=== PATIENT | female | born 2000 | race Caucasian/White ===

== ENCOUNTER 2020-08-27 16:12 | Emergency (ER) | payer OTHER ==
[~2020-08-27] VITALS: Ht 162.6 cm; Wt 70.2 kg
[2020-08-27] MEDS ORDERED: ONDANSETRON ODT 4 MG TAB.RAPDIS PO ONE (16:45)
[2020-08-27 17:44] LABS: BILIRUBIN,URINE NEG (NEG); CLARITY,URINE CLEAR; COLOR,URINE YELLOW; GLUCOSE,URINE NEG (NEG); NITRITE,URINE NEG (NEG); RBC,URINE OCC /HPF (0-2); UROBILINOGEN,URINE 0.2 mg/dL (0.2 mg/dL)
[2020-08-27 17:45] LABS: BACTERIA,URINE FEW /HPF (0-FEW); SQUAMOUS EPITHELIAL CELL,UR FEW /LPF
[2020-08-27 18:00] VITALS: BP 125/81
--- NOTE | 2020-08-27 18:10 | PHYS DOC ---
Past History Past Medical History: Endometriosis (SHASTA LOGAN APRN) Past Surgical History: No Surgical History (SHASTA LOGAN APRN) Alcohol Use: Rarely (SHASTA LOGAN APRN) Adult General Chief Complaint Chief Complaint: NAUSEA/VOMITING/DIARRHEA HPI HPI Patient is a 20-year-old female presents emergency department complaining that she vomited 3 times after eating today. Patient states she also had 1 bout of diarrhea with loose brown stool but did not see any blood in her stool. Patient denies any blood in her vomitus. Patient's states that she received the Moderna Covid19 vaccination shot yesterday and thinks maybe she is having a reaction to that. Patient currently denies any nausea, abdominal pain, chest pain, shortness of breath, congestion. Patient states that her last menstrual cycle was 2 weeks ago and she could not be because she has not had sex since then. Patient denies any vaginal discharge, urinary infection type signs and symptoms, denies STI concerns. Patient states he takes or less of control along with Zoloft and modafinil for a condition called hypersomnia. Patient denies any other physical illness or physical symptoms. Patient states that she lives at home with her only and he is not having the same symptoms that she. Patient does report a history of endometriosis stating that sometimes she becomes nauseated and has vomiting episodes when her endometriosis flares up however she states she is not having any abdominal pain at this time. (SHASTA LOGAN APRN) Review of Systems Review of Systems 14 body systems of review of systems have been reviewed. See HPI for pertinent positives and negative responses, otherwise all other systems are negative, nonpertinent or noncontributory. (SHASTA LOGAN APRN) Current Medications Current Medications Current Medications Medications (Trade) Dose Ordered Sig/Ilda Start Time Stop Time Status Last Admin Dose Admin Ondansetron HCl (Zofran Odt) 4 mg 1X ONCE 08/27/20 16:45 08/27/20 16:46 DC 08/27/20 16:45 4 MG (SHASTA LOGAN APRN) Allergies Allergies Allergies Coded Allergies Type Severity Reaction Last Updated Verified No Known Drug Allergies 08/27/20 No (SHASTA LOGAN APRN) Physical Exam Physical Exam Constitutional: Well developed, well nourished, no acute distress, non-toxic appearance. HENT: Normocephalic, atraumatic, bilateral external ears normal, oropharynx june st, no oral exudates, nose normal. Eyes: PERRLA, EOMI, conjunctiva normal, no discharge. Neck: Normal range of motion, no tenderness, supple, no stridor. Cardiovascular:Heart rate regular rhythm, no murmur Lungs & Thorax: Bilateral breath sounds clear to auscultation Abdomen: Bowel sounds normal, soft, no tenderness, no masses, no pulsatile masses. Skin: Warm, dry, no erythema, no rash. Back: No tenderness, no CVA tenderness. Extremities: No tenderness, no cyanosis, no clubbing, ROM intact, no edema. Neurologic: Alert and oriented X 3, normal motor function, normal sensory function, no focal deficits noted. Psychologic: Affect normal, judgement normal, mood normal. (SHASTA LOGAN APRN) Current Patient Data Vital Signs Vital Signs Date Time Temp Pulse Resp B/P (MAP) Pulse Ox O2 Delivery O2 Flow Rate FiO2 08/27/20 18:00 97.6 79 18 125/81 (96) 97 08/27/20 17:12 Room Air Lab Results Laboratory Tests Test 08/27/20 16:25 08/27/20 16:33 Urine Collection Type Unknown Urine Color Yellow Urine Clarity Clear Urine pH 7.0 Urine Specific [place] 1.020 Urine Protein Trace (NEG-TRACE) Urine Glucose (UA) Neg mg/dL (NEG) Urine Ketones (Stick) Neg mg/dL (NEG) Urine Blood Neg (NEG) Urine Nitrite Neg (NEG) Urine Bilirubin Neg (NEG) Urine Urobilinogen Dipstick 0.2 mg/dL (0.2 mg/dL) Urine Leukocyte Esterase Neg (NEG) Urine RBC Occ /HPF (0-2) Urine WBC 1-4 /HPF (0-4) Urine Squamous Epithelial Cells Few /LPF Urine Bacteria Few /HPF (0-FEW) POC Urine HCG, Qualitative hcg negative (Negative) (SHASTA LOGAN APRN) EKG EKG [] (SHASTA LOGAN APRN) Radiology/Procedures Radiology/Procedures [] (SHASTA LOGAN APRN) Heart Score Risk Factors: Risk Factors: DM, Current or recent (<one month) smoker, HTN, HLP, family history of CAD, obesity. Risk Scores: Risk Factors: DM, Current or recent (<one month) smoker, HTN, HLP, family history of CAD, obesity. (SHASTA LOGAN APRN) Course & Med Decision Making Course & Med Decision Making Pertinent Labs and Imaging studies reviewed. (See chart for details) 20-year-old female, vital signs reviewed, presented emergency department plan nausea. Patient associates some vomiting nausea and diarrhea from receiving the Moderna Covid19 vaccination yesterday. Patient's physical exam was unremarkable. Patient was given 1 sublingual Zofran 4 mg in the emergency department and a urine and UA assay was ordered pending results at this time. The patient was not , her urine was not infected, discussed results with patient who states that she feels much better and wishes to go home at this time. Patient gave verbal understanding of discharge home instructions, return to ER concerns, patient had no further questions or concerns and was discharged home without incident. Impression: #1 nausea, vomiting, diarrhea. Symptoms resolved. (SHASTA LOGAN APRN) Course & Med Decision Making I oversaw on the above date of service of this patient and discussed the care with the REGIONAL SALES ENGINEER. I agree with the findings, plan of care, and disposition as documented. (SHWETA AN DO) Dragon Disclaimer Dragon Disclaimer This electronic medical record was generated, in whole or in part, using a voice recognition dictation system. (SHASTA LOGAN APRN) Departure Departure: Impression: Primary Impression: Nausea vomiting and diarrhea Disposition: 01 DC HOME SELF CARE/HOMELESS Condition: IMPROVED Referrals: PCP,UNKNOWN (PCP) Patient Instructions: Diarrhea, Nausea and Vomiting Additional Instructions: You are seen in the emergency department today for a bout of diarrhea, vomiting, and nausea. You were given Zofran for nausea today which has relieved your symptoms. I have offered to give you a prescription for more Zofran at home and you have opted to decline the prescription, stating that you feel better now and you are no longer concerned about your previous nausea, vomiting, and diarrhea spells you had that prior to the ER today. Please return to the emergency department for worsening symptoms or other concerns. We ran a urine assay today and you are not , your urine was not infected. EMERGENCY DEPARTMENT GENERAL DISCHARGE INSTRUCTIONS Thank you for coming to [facility] (ED) today and trusting us with you care. We trust that you had a positivie experience in our Emergency Department. If you wish to speak to the department management, you may call the director at [phone]. YOUR FOLLOW UP INSTRUCTIONS ARE FOLLOWS: 1. Do you have a private Doctor? If you do not have a private doctor, please ask for a resource list of physicians or clinics that may be able to assist you with follow up care. 2. The Emergency Physician has interpreted your x-rays. The X-Ray specialist will also review them. If there is a change in the findings, you will be notified in 48 hours when at all possible. 3. A lab test or culture has been done, your results will be reviewed and you will be notified if you need a change in treatment. ADDITIONAL INSTRUCTIONS AND INFORMATION: 1. Your care today has been supervised by a physician who is specially trained in emergency care. Many problems require more than one evaluation for a complete diagnosis and treatment. We recommend that you schedule your follow up appointment as recommended to ensure complete treatment of you illness or injury. If you are unable to obtain follow up care and continue to have a problem, or if your condition worsens, we recommend that you return to the ED. 2. We are not able to safely determine your condition over the phone nor are we able to give sound medical advice over the phone. For these safety reasons, if you call for medical advice we will ask you to come to the ED for further evaluation. 3. If you have any questions regarding these discharge instructions please call the ED at [phone]. SAFETY INFORMATION: In the interest of safety, wellness, and injury prevention; we encourage you to wear your sealbelt, if you smoke; quite smoking, and we encourage family to use a protective helmet for bicycling and other sporting events that present an increased risk for head injury. IF YOUR SYMPTOMS WORSEN OR NEW SYMPTOMS DEVELOP, OR YOU HAVE CONCERNS ABOUT YOUR CONDITION; OR IF YOUR CONDITION WORSENS WHILE YOU ARE WAITING FOR YOUR FOLLOW UP APPOINTMENT; EITHER CONTACT YOUR PRIMARY CARE DOCTOR, THE PHYSICIAN WHOSE NAME AND NUMBER YOU WERE GIVEN, OR RETURN TO THE ED IMMEDIATELY. SHASTA LOGAN APRN Aug 27, 2020 18:10 SHWETA AN DO Aug 28, 2020 06:14
== END 2020-08-27 18:15 | disposition home or self-care (01) ==
LOC: ER 16:12
DX: R11.2 Nausea with vomiting, unspecified (principal); R19.7 Diarrhea, unspecified
CPT/HCPCS: 81001; 81025; 99283; Q0162

== ENCOUNTER 2021-05-07 20:35 | Emergency (ER) | payer OTHER ==
[~2021-05-07] VITALS: Ht 162.6 cm; Wt 60.4 kg
[2021-05-07] MEDS ORDERED: DICYCLOMINE HCL 20 MG TABLET PO ONE (21:15)
[2021-05-07] MEDS ORDERED: ONDANSETRON PF 4 MG/2 ML VIAL. IVP ONE (21:15)
[2021-05-07] MEDS ORDERED: KETOROLAC 30 MG/ML VIAL. IVP ONE (21:15)
[2021-05-07] MEDS ORDERED: diphenhydrAMINE 50 MG/ML VIAL IVP ONE (21:15)
[2021-05-07 21:44] LABS: BASO # 0.1 x10^3/uL (0.0-0.2); BASO % 1 % (0-3); EOS # 0.1 x10^3/uL (0.0-0.7); EOS % 1 % (0-3); HEMATOCRIT 39.6 % (36.0-47.0); HEMOGLOBIN 13.7 g/dL (12.0-15.5); LYMPH # 2.2 x10^3/uL (1.0-4.8); LYMPH % 16 % (24-48); MEAN CORPUSCULAR HEMOGLOBIN 30 pg (25-35); MEAN CORPUSCULAR HGB CONC 35 g/dL (31-37); MEAN CORPUSCULAR VOLUME 87 fL (79-100); MONO % 7 % (0-9); NEUT # 10.3 x10^3uL (1.8-7.7); NEUT % 75 % (31-73); PLATELET COUNT 192 x10^3/uL (140-400); RED BLOOD COUNT 4.53 x10^6/uL (3.50-5.40); RED CELL DISTRIBUTION WIDTH 12.7 % (11.5-14.5); WHITE BLOOD COUNT 13.7 x10^3/uL (4.0-11.0)
[2021-05-07 21:51] LABS: CALCIUM 9.2 mg/dL (8.5-10.1); CREATININE 0.8 mg/dL (0.6-1.0); GFR 89.7; POTASSIUM 3.5 mmol/L (3.5-5.1)
[2021-05-07 21:57] LABS: ALBUMIN 3.9 g/dL (3.4-5.0); ALBUMIN/GLOBULIN RATIO 1.3 (1.0-1.7); TOTAL BILIRUBIN 0.2 mg/dL (0.2-1.0); TOTAL PROTEIN 6.8 g/dL (6.4-8.2)
[2021-05-07 22:01] LABS: BACTERIA,URINE 0 /HPF (0-FEW); BILIRUBIN,URINE NEG (NEG); CLARITY,URINE CLEAR; COLOR,URINE YELLOW; GLUCOSE,URINE NEG (NEG); NITRITE,URINE NEG (NEG); RBC,URINE 0 /HPF (0-2); UROBILINOGEN,URINE 0.2 mg/dL (0.2 mg/dL); WBC,URINE 0 /HPF (0-4)
--- NOTE | 2021-05-07 22:02 | PHYS DOC ---
Past History Past Medical History: Endometriosis Past Surgical History: Other Alcohol Use: Rarely Adult General Chief Complaint Chief Complaint: ABDOMINAL PAIN HPI HPI Patient is a 20-year-old female with a past medical history significant for endometriosis and fibroids, who presents with a chief complaint of lower abdominal pain states she has had some lower abdominal cramping over the day, 7 out of 10, dull and achy in nature. States she has taken some Tylenol and ibuprofen but it did not help and she recently quit her endometriosis medicine but cannot remember the name of it. Denies any recent traumas, travels, illnesses, fevers, chest pain, shortness of breath, nausea, vomiting, diarrhea, dysuria, hematuria or blood in the stool. Denies any vaginal bleeding, discharge, pain, genital lesions or history of STIs. Review of Systems Review of Systems Review of systems otherwise unremarkable except noted in HPI Current Medications Current Medications Current Medications Medications (Trade) Dose Ordered Sig/Ilda Start Time Stop Time Status Last Admin Dose Admin Dicyclomine HCl (Bentyl) 20 mg 1X ONCE 05/07/21 21:15 05/07/21 21:18 DC Diphenhydramine HCl (Benadryl) 25 mg 1X ONCE 05/07/21 21:15 05/07/21 21:18 DC Fentanyl Citrate (Fentanyl 2ml Vial) 25 mcg 1X ONCE 05/07/21 21:15 05/07/21 21:16 DC 05/07/21 21:35 25 MCG Ketorolac Tromethamine (Toradol 30mg Vial) 30 mg 1X ONCE 05/07/21 21:15 05/07/21 21:18 DC Ondansetron HCl (Zofran) 4 mg 1X ONCE 05/07/21 21:15 05/07/21 21:16 DC 05/07/21 21:36 4 MG Allergies Allergies Allergies Coded Allergies Type Severity Reaction Last Updated Verified No Known Drug Allergies 08/27/20 No Physical Exam Physical Exam Constitutional: Well developed, well nourished, no acute distress, non-toxic appearance. [] HENT: Normocephalic, atraumatic, bilateral external ears normal, oropharynx moist, no oral exudates, nose normal. [] Eyes: conjunctiva normal, no discharge. [] Neck: Normal range of motion, no tenderness, supple, no stridor. [] Cardiovascular:Heart rate regular rhythm, no murmur [] Lungs & Thorax: Bilateral breath sounds clear to auscultation [] Abdomen: soft, generalized tenderness, no masses, no pulsatile masses. [] Skin: Warm, dry, no erythema, no rash. [] Back: No tenderness, no CVA tenderness. [] Extremities: No tenderness, no cyanosis, no clubbing, ROM intact, no edema. [] Neurologic: Alert and oriented X 3, normal motor function, normal sensory f unction, no focal deficits noted. [] Psychologic: Affect normal, judgement normal, mood normal. [] Current Patient Data Vital Signs Vital Signs Date Time Temp Pulse Resp B/P (MAP) Pulse Ox O2 Delivery O2 Flow Rate FiO2 05/07/21 21:35 20 05/07/21 21:02 98.0 86 138/64 (88) 98 Room Air Lab Results Laboratory Tests Test 05/07/21 21:20 White Blood Count 13.7 x10^3/uL (4.0-11.0) H Red Blood Count 4.53 x10^6/uL (3.50-5.40) Hemoglobin 13.7 g/dL (12.0-15.5) Hematocrit 39.6 % (36.0-47.0) Mean Corpuscular Volume 87 fL (79-100) Mean Corpuscular Hemoglobin 30 pg (25-35) Mean Corpuscular Hemoglobin Concent 35 g/dL (31-37) Red Cell Distribution Width 12.7 % (11.5-14.5) Platelet Count 192 x10^3/uL (140-400) Neutrophils (%) (Auto) 75 % (31-73) H Lymphocytes (%) (Auto) 16 % (24-48) L Monocytes (%) (Auto) 7 % (0-9) Eosinophils (%) (Auto) 1 % (0-3) Basophils (%) (Auto) 1 % (0-3) Neutrophils # (Auto) 10.3 x10^3uL (1.8-7.7) H Lymphocytes # (Auto) 2.2 x10^3/uL (1.0-4.8) Monocytes # (Auto) 1.0 x10^3/uL (0.0-1.1) Eosinophils # (Auto) 0.1 x10^3/uL (0.0-0.7) Basophils # (Auto) 0.1 x10^3/uL (0.0-0.2) Sodium Level 139 mmol/L (136-145) Potassium Level 3.5 mmol/L (3.5-5.1) Chloride Level 104 mmol/L (98-107) Carbon Dioxide Level 25 mmol/L (21-32) Anion Gap 10 (6-14) Blood Urea Nitrogen 15 mg/dL (7-20) Creatinine 0.8 mg/dL (0.6-1.0) Estimated GFR (Cockcroft-Gault) 89.7 BUN/Creatinine Ratio 19 (6-20) Glucose Level 92 mg/dL (70-99) Calcium Level 9.2 mg/dL (8.5-10.1) Total Bilirubin Pending Aspartate Amino Transferase (AST) Pending Alanine Aminotransferase (ALT) Pending Alkaline Phosphatase Pending Total Protein Pending Albumin Pending Albumin/Globulin Ratio Pending Lipase Pending EKG EKG [] Radiology/Procedures Radiology/Procedures []OMPARISON: None. FINDINGS: Lung windows through the visualized portions of the bases reveal no abnormality. Bone windows reveal no suspicious lesions. The liver, gallbladder, pancreas, adrenal glands, spleen and kidneys are unremarkable without contrast. There are no renal or ureteral calculi. There are no pathologically enlarged lymph nodes. A cyst or large follicle in the left ovary measures 5.6 x 4.3 cm. There is a small amount of free pelvic fluid. The uterus is unremarkable by noncontrast CT. The appendix is above the limits of normal caliber at 8 mm but does not appear inflamed. There is no small bowel obstruction. IMPRESSION: 1. 5.6 cm cyst versus dominant follicle in the left ovary. Pelvic sonography could further evaluate if there is persistent concern. 2. The appendix is above the limits of normal caliber but does not appear inflamed and this is likely a normal variant. Correlate with other data. Electronically signed by: Grey Freeman MD (05/08/2021 12:25 AM) [facility] AM: Pelvic ultrasound HISTORY: Left adnexal cyst, pelvic pain. COMPARISON: Today's CT. FINDINGS: Sonographic evaluation of the pelvis was performed transvaginally. The uterus is anteverted and measures 8.2 x 4.0 x 3.5 cm. The endometrial stripe measures 7 mm. No masses are identified. The right ovary measures 2.8 x 2.5 x 1.9 cm. The left ovary measures 5.7 x 4.9 x 3.7 cm. A simple appearing left ovarian cyst or dominant follicle measures 5.2 x 4.1. X 3.4 cm. There is a small amount of adjacent simple appearing free fluid within the left adnexa and cul-de-sac. There is normal Doppler flow bilaterally. IMPRESSION: 1. 5.2 cm left ovarian cyst or dominant follicle. This is likely benign in this demographic. Electronically signed by: Grey Freeman MD (05/08/2021 2:38 AM) UI-[facility] Heart Score C/O Chest Pain: No Risk Factors: Risk Factors: DM, Current or recent (<one month) smoker, HTN, HLP, family history of CAD, obesity. Risk Scores: Risk Factors: DM, Current or recent (<one month) smoker, HTN, HLP, family history of CAD, obesity. Course & Med Decision Making Course & Med Decision Making Patient is a 20-year-old female who presents with lower abdominal cramping and pain [Vital signs not concerning. Physical exam noted above. Patient placed on the monitor with IV access established. negative. Given pain and nausea medicine. Laboratory analysis not concerning. Physical exam noted above. CT notable for a 5.6 cm cyst in the left ovary. Ultrasound shows 5.2 cm left ovarian cyst likely benign with appropriate Doppler flow bilaterally On reassessment patient symptoms had resolved and she was feeling better and ready to be discharged home. Discussed all findings with patient advised to follow-up with her computer information science professor on Sunday to discuss further evaluation and treatment Gave return precautions to the ED. Patient grateful, verbalized understanding and agreed with plan of discharge. Dragon Disclaimer Dragon Disclaimer This electronic medical record was generated, in whole or in part, using a voice recognition dictation system. Departure Departure: Impression: Primary Impression: Abdominal pain Additional Impression: Ovarian cyst Disposition: HOME / SELF CARE / HOMELESS Condition: GOOD Referrals: PCP,UNKNOWN (PCP) MAY DAN Patient Instructions: Ovarian Cyst Additional Instructions: Thank you for coming into the emergency department tonight and allowing us to take care of you. Please read all the attached information carefully to go back over some of the things we discussed. Please begin a Tylenol, ibuprofen, and Benadryl regimen as discussed to control symptoms at home. Please follow-up first thing Sunday morning with your ELECTRONIC EQUIPMENT REPAIRMEN to set up a follow-up appointment as soon as possible to discuss further evaluation and treatment and need for outpatient ultrasound. Please come back to the ED with new or concerning symptoms as discussed. Problem Qualifiers BALA MOORE MD May 07, 2021 22:02
[2021-05-07 23:20] LABS: U PREG PATIENT NEGATIVE (NEG)
[2021-05-07] MEDS ORDERED: HYDROmorphone PF 2 MG/ML VIAL IVP ONE (23:30)
[2021-05-07] MEDS ORDERED: HYDROmorphone PF 1 MG/ML DISP.SYRIN ONE (23:36)
--- NOTE | 2021-05-08 00:27 | RAD ---
EXAM: CT ABDOMEN/PELVIS WITHOUT CONTRAST. HISTORY: Abdominal pain, endometriosis. TECHNIQUE: Computed tomography of the abdomen and pelvis was performed without intravenous contrast. One or more of the following individualized dose reduction techniques were utilized for this examinat ion: 1. Automated exposure control. 2. Adjustment of the mA and/or kV according to patient size. 3. Use of iterative reconstruction technique. COMPARISON: None. FINDINGS: Lung windows through the visualized portions of the bases reveal no abnormality. Bone windo ws reveal no suspicious lesions. The liver, gallbladder, pancreas, adrenal glands, spleen and kidneys are unremarkable without contras t. There are no renal or ureteral calculi. There are no pathologically enlarged lymph nodes. A cyst or large follicle in the left ovary measures 5.6 x 4.3 cm. There is a small amount of free pel ana fluid. The uterus is unremarkable by noncontrast CT. The appendix is above the limits of normal caliber at 8 mm but does not appear inflamed. There is no small bowel obstruction. IMPRESSION: 1. 5.6 cm cyst versus dominant follicle in the left ovary. Pelvic sonography could further evaluate i f there is persistent concern. 2. The appendix is above the limits of normal caliber but does not appear inflamed and this is likely a normal variant. Correlate with other data. Electronically signed by: Grey Freeman MD (05/08/2021 12:25 AM) [facility]
--- NOTE | 2021-05-08 02:41 | RAD ---
EXAM: Pelvic ultrasound HISTORY: Left adnexal cyst, pelvic pain. COMPARISON: Today's CT. FINDINGS: Sonographic evaluation of the pelvis was performed transvaginally. The uterus is anteverted and measures 8.2 x 4.0 x 3.5 cm. The endometrial stripe measures 7 mm. No ma sses are identified. The right ovary measures 2.8 x 2.5 x 1.9 cm. The left ovary measures 5.7 x 4.9 x 3.7 cm. A simple esther earing left ovarian cyst or dominant follicle measures 5.2 x 4.1. X 3.4 cm. There is a small amount o f adjacent simple appearing free fluid within the left adnexa and cul-de-sac. There is normal Doppler flow bilaterally. IMPRESSION: 1. 5.2 cm left ovarian cyst or dominant follicle. This is likely benign in this demographic. Electronically signed by: Grey Freeman MD (05/08/2021 2:38 AM) [facility]
[2021-05-08 03:15] VITALS: BP 98/45
== END 2021-05-08 03:20 | disposition home or self-care (01) ==
LOC: ER 20:35
DX: N83.202 Unspecified ovarian cyst, left side (principal); R10.30 Lower abdominal pain, unspecified
CPT/HCPCS: 36415; 74176; 76830; 80053; 81001; 81025; 83690; 85025; 96374; 96375; 99285; J1170; J1200; J1885; J2405; J3010

== ENCOUNTER 2021-06-09 03:28 | Emergency (ER) | payer OTHER ==
[~2021-06-09] VITALS: Ht 162.6 cm; Wt 68.2 kg
--- NOTE | 2021-06-09 03:58 | PHYS DOC ---
Past History Past Medical History: Endometriosis Past Surgical History: Other Alcohol Use: None Adult General Chief Complaint Chief Complaint: FEVER HPI HPI Patient is a 20-year-old female who presents with 2 days of fever, body aches and occasional cough. States she took some Excedrin yesterday morning but otherwise has not taken any medicine. Denies any recent travel, traumas, known ill contacts, chest pain, shortness of breath, abdominal pain, vomiting, dysuria, hematuria or blood in the stool or diarrhea. States she has had some nausea. Review of Systems Review of Systems Constitutional: Denies fever or chills [] Eyes: Denies change in visual acuity, redness, or eye pain [] HENT: Denies nasal congestion or sore throat [] Respiratory: Denies cough or shortness of breath [] Cardiovascular: No additional information not addressed in HPI [] GI: Denies abdominal pain, nausea, vomiting, bloody stools or diarrhea [] : Denies dysuria or hematuria [] Musculoskeletal: Denies back pain or joint pain [] Integument: Denies rash or skin lesions [] Neurologic: Denies headache, focal weakness or sensory changes [] Endocrine: Denies polyuria or polydipsia [] All other systems were reviewed and found to be within normal limits, except as documented in this note. Allergies Allergies Allergies Coded Allergies Type Severity Reaction Last Updated Verified No Known Drug Allergies 08/27/20 No Physical Exam Physical Exam Constitutional: Well developed, well nourished, no acute distress, non-toxic appearance. [] HENT: Normocephalic, atraumatic, bilateral external ears normal, oropharynx moist, no oral exudates, nose normal. [] Eyes: conjunctiva normal, no discharge. [] Neck: Normal range of motion, no tenderness, supple, no stridor. [] Cardiovascular: Sinus tachycardia Lungs & Thorax: Bilateral breath sounds clear to auscultation [] Abdomen: soft, no tenderness, no masses, no pulsatile masses. [] Skin: Warm, dry, no erythema, no rash. [] Extremities: No tenderness, no cyanosis, no clubbing, ROM intact, no edema. [] Neurologic: Alert and oriented X 3, normal motor function, normal sensory function, no focal deficits noted. [] Psychologic: Affect normal, judgement normal, mood normal. [] Current Patient Data Vital Signs Vital Signs Date Time Temp Pulse Resp B/P (MAP) Pulse Ox O2 Delivery O2 Flow Rate FiO2 06/09/21 03:34 100.3 122 18 111/65 (80) 98 Room Air EKG EKG [] Radiology/Procedures Radiology/Procedures [] Heart Score C/O Chest Pain: No Risk Factors: Risk Factors: DM, Current or recent (<one month) smoker, HTN, HLP, family history of CAD, obesity. Risk Scores: Risk Factors: DM, Current or recent (<one month) smoker, HTN, HLP, family history of CAD, obesity. Course & Med Decision Making Course & Med Decision Making Patient is a 20-year-old female who presents with cold/flu/Covid symptoms Vital signs notable for tachycardia and fever. Physical exam noted above. Given Tylenol and ibuprofen as well as Zofran. Patient able to take p.o. witho ut issue. Covid swab pending. Chest x-ray not concerning of consolidated process. Urinalysis not concerning. Patient vital signs improved with treatment. Discussed all findings with patient. Discussed Covid swab and quarantine until results. Advised to follow-up in the morning with primary care physician. Gave return precautions to the ED. Patient grateful, verbalized understanding and agreed with plan of discharge. [] Dragon Disclaimer Dragon Disclaimer This electronic medical record was generated, in whole or in part, using a voice recognition dictation system. Departure Departure: Impression: Primary Impression: Viral syndrome Additional Impression: Person under investigation for COVID-19 Disposition: 01 HOME / SELF CARE / HOMELESS Condition: GOOD Referrals: PCP,STEVE (PCP) MAY DAN Patient Instructions: Viral Syndrome Additional Instructions: You have been tested for or diagnosed with COVID-19. It is an infection caused by a new type of coronavirus. COVID-19 will cause cold-like or mild flu symptoms in most. It can cause more severe symptoms like problems breathing in some. There is no treatment for COVID-19. The body will clear the infection over time. Self-care will help to ease discomfort. Steps to Take: Self-Care Rest as needed. Healthy habits may help you feel better. Steps include: Choose healthy foods including fruits and vegetables. Drink water throughout the day. Get plenty of sleep each night. If you smoke, try to quit. It may ease breathing. Avoid alcohol. Keep Others Healthy The virus can spread to others. Droplets are released every time you sneeze or cough. The droplets can get into the mouth, nose, or eyes of people near you and lead to infection. To lower the chances of spreading COVID-19 to others: Stay at home until your doctor has said it is safe to leave. If you tested positive this will mean staying isolated until both of the following are true: At least 7 days have passed since the start of illness. You are free of fever for at least 72 hours without the use of medicine. During this time: - Avoid public areas, events, or transportation. Do not return to work or school until your doctor has said it is safe to do so. - Call ahead if you need to go to a medical center. Let them know you may have COVID-19. It will help them guide you where to go. They may also ask you to wear a facemask when you come to the office. - If you call for emergency medical services, let them know you may have COVID- 19. While at home: - Try to avoid close contact with others. Stay about 6 feet away. - If possible, spend most of your time in a separate room from others. - Use a face mask if you will be in close contact with others such as sharing a room or vehicle. - Have someone wipe down common surfaces in the home. Use household revenue research analyst every day on areas like doorknobs, counters, or sinks. - Cough or sneeze into a tissue. Throw the tissue away right after use. If a tissue is not available, cough or sneeze into your elbow. - Wash your hands often. Wash them after sneezing or coughing. Use soap and water and wash for at least 20 seconds. Alcohol based hand equipment cleaner and tester can be used if soap and water is not available. - Do not prepare food for others. Avoid sharing personal items like forks, spoons, or toothbrushes. - Avoid close contact with pets while you are sick. There is no evidence of the virus passing to pets. This is a safety step until more is known about this virus. Isolation can be frustrating. Social interaction can help. Keep in touch with friends and family through phone and tech options. You can still interact with others in your home, just keep a safe distance of about 6 feet. Follow-up: Your doctors office will check in with you to see if there are any changes in your health. You may be asked to keep track of symptoms to share with them. They will also let you know when you are clear to be in public again. Problems to Look Out For: Contact your doctor if your recovery is not going as you expect. Get emergency care if you have problems such as: - Trouble breathing - Nonstop chest pain or pressure - Changes in awareness, confusion, or problems waking - Lips or face have bluish color - Worsening of symptoms If you think you have an emergency, call for emergency medical services right away. [facility] from [facility] Health Problem Qualifiers BALA MOORE MD Jun 09, 2021 03:58
[2021-06-09] MEDS ORDERED: ONDANSETRON ODT 4 MG TAB.RAPDIS PO ONE (04:30)
[2021-06-09] MEDS ORDERED: ACETAMINOPHEN 500 MG TABLET PO ONE (04:30)
[2021-06-09] MEDS ORDERED: IBUPROFEN 800 MG TABLET. PO ONE (04:30)
[2021-06-09 04:32] LABS: BILIRUBIN,URINE NEG (NEG); CLARITY,URINE CLEAR; COLOR,URINE YELLOW; GLUCOSE,URINE NEG (NEG)
[2021-06-09 04:33] LABS: BACTERIA,URINE 0 /HPF (0-FEW); NITRITE,URINE NEG (NEG); SQUAMOUS EPITHELIAL CELL,UR OCC /LPF; UROBILINOGEN,URINE 0.2 mg/dL (0.2 mg/dL)
--- NOTE | 2021-06-09 04:49 | RAD ---
EXAMINATION: XR CHEST 1V CLINICAL HISTORY: Cough, fever EXAM DATE/TIME: 06/09/2021 4:28 AM COMPARISON: None FINDINGS: Lines, Tubes, and Devices: None. Cardiomediastinal Silhouette: Within normal limits. Lungs and Pleura: Mild patchy airspace disease in the right lower lung zone. No pleural effusion. Pul monary vasculature unremarkable. Bones and Soft Tissues: No acute osseous abnormality. IMPRESSION: Mild patchy airspace disease in the right lower lung zone. Electronically signed by: Delvis Lyon DO (06/09/2021 4:47 AM) [email or web address]
[2021-06-09 04:50] VITALS: BP 101/60
== END 2021-06-09 04:55 | disposition home or self-care (01) ==
LOC: ER 03:28
DX: B34.9 Viral infection, unspecified (principal); Z20.822 Contact with and (suspected) exposure to COVID-19
CPT/HCPCS: 71045; 81001; 81025; 99284; C9803; Q0162; U0003